=== PATIENT | female | born 1990 | race Caucasian/White ===

== ENCOUNTER 2022-03-15 10:59 | Inpatient (IN) ==
[2022-03-15] MEDS: Piperacillin/Tazobactam 3.375 GM in 0.9 % Sodium Chloride Mini Bag 100 ML IVPB SCH (15:25)
[2022-03-15] MEDS: Ringers Solution, Lactated 1,000 ML IVC SCH (15:25)
[2022-03-16] MEDS: Piperacillin/Tazobactam 3.375 GM in 0.9 % Sodium Chloride Mini Bag 100 ML IVPB SCH ×3 (00:11→15:26)
[2022-03-16 06:45] LABS: Hematocrit 37.9 % (35.3-44.9); Hemoglobin 12.6 g/dL (11.5-15.4); Mean Corpuscular HGB Conc 33.2 g/dL (31.6-35.5); Mean Corpuscular Hemoglobin 30.3 pg (28.0-33.3); Mean Corpuscular Volume 91.1 fL (83.0-100.0); Platelet Count 264 K/mcL (140-400); Red Blood Count 4.16 M/mcL (3.82-4.97); Red Cell Distribution Width 12.8 % (11.5-14.5); White Blood Count 7.5 K/mcL (4.3-11.1)
[2022-03-16 07:05] LABS: Alanine Aminotransferase 10 Units/L (7-52); Albumin 3.7 g/dL (3.5-5.7); Albumin/Globulin Ratio 1.5 (1.1-2.2); Alkaline Phosphatase 54 Units/L (34-104); Aspartate Amino Transferase 10 Units/L (13-39); BUN/Creatinine Ratio 13 (6-26); Bilirubin,Total 0.3 mg/dL (0.3-1.0); Blood Urea Nitrogen 8 mg/dL (6-20); Calcium 8.7 mg/dL (8.6-10.3); Carbon Dioxide 25 mEq/L (23-29); Chloride 108 mEq/L (98-107); Globulin 2.5 g/dL (2.4-3.5); Glucose 103 mg/dL (70-105); Osmolality,Calculated 285 (280-300); Potassium 3.7 mEq/L (3.5-5.1); Sodium 138 mEq/L (136-145); Total Protein 6.2 g/dL (6.4-8.9)
[2022-03-16] MEDS: Ringers Solution, Lactated 1,000 ML IVC SCH ×3 (07:36→23:37)
[2022-03-16] MEDS ORDERED: metroNIDAZOLE 500 MG TABLET PO SCH (16:16)
[2022-03-16] MEDS ORDERED: MetroNIDAZOLE 500 MG/100 ML 500 MG/100 ML BAG IVPB SCH (16:34)
[2022-03-16] MEDS ORDERED: Nicotine 2 MG GUM BC PRN (16:58)
[2022-03-16] MEDS: metroNIDAZOLE 500 MG TABLET PO SCH ×2 (17:05→20:27)
[2022-03-16] MEDS: Doxycycline 100 MG CAPSULE PO SCH (17:05)
[2022-03-16] MEDS: Nicotine 14 MG PATCH.TD24 TD SCH (17:05)
[2022-03-17] MEDS ORDERED: cefTRIAXone 1,000 MG in 0.9 % Sodium Chloride 10 ML IVP SCH
[2022-03-17] MEDS: Doxycycline 100 MG CAPSULE PO SCH (06:30)
[2022-03-17 06:32] VITALS: O2SAT 97
[2022-03-17] MEDS: Ringers Solution, Lactated 1,000 ML IVC SCH (07:10)
[2022-03-17] MEDS: metroNIDAZOLE 500 MG TABLET PO SCH (08:47)
[2022-03-17] MEDS: Nicotine 14 MG PATCH.TD24 TD SCH (09:04)
[2022-03-17 09:54] VITALS: BP 136/90; PULSE 91; TEMP 98.6
== END 2022-03-17 08:55 | disposition home or self-care (01) | DRG 531 ==
LOC: 1NENUPED
PROVIDERS: ADMIT Obstetrics & Gynecology; ATTEND Obstetrics & Gynecology